=== PATIENT | male | born 1975 | race Caucasian/White ===

== ENCOUNTER 2017-01-22 20:27 | Emergency (ER) | payer MEDICARE, OTHER ==
[2017-01-22 21:25] LABS: RED BLOOD COUNT 5.39 M/UL (4.20-5.50); WHITE BLOOD COUNT 7.8 K/UL (4.5-11.0)
[2017-01-22 21:48] LABS: BUN/CREATININE RATIO 15 (0-10)
== END 2017-01-22 23:50 | disposition home or self-care (01) ==
LOC: ER1 20:27
PROVIDERS: Physician Assistant
DX: E11.65 Type 2 diabetes mellitus with hyperglycemia (principal); I10 Essential (primary) hypertension; E66.9 Obesity, unspecified; E78.5 Hyperlipidemia, unspecified; Z91.14 Patient's other noncompliance with medication regimen; F17.210 Nicotine dependence, cigarettes, uncomplicated; Z88.0 Allergy status to penicillin; Z88.2 Allergy status to sulfonamides
CPT/HCPCS: 36415; 70450; 71010; 80053; 80061; 81001; 82550; 82553; 82962; 83036; 83690; 83874; 84443; 84484; 85025; 87086; 93005; 96360; 96361; 96372; 99284; J1815

== ENCOUNTER 2020-10-17 10:16 | Emergency (ER) | payer MEDICARE ==
[~2020-10-17 10:16] MED LIST: ADULT LOW DOSE81 MG PO; ALBUTEROL0.63 MG/3 INH; ALDACTONE 25MG25 MG PO; ALDACTONE25 MG PO; AMIODARONE HCL200 MG PO; BACTRIM 400-801 EACH PO; BASAGLAR SC; BUMETANIDE1 MG PO; BUMEX 1MG TABLET1 MG PO; CORDARONE 200M200 MG PO; COUMADIN 5MG TAB5 MG PO; ELIQUIS 5 MG TAB5 MG PO; ENDOCET 10-3251 EACH PO; ENOXAPARIN120 MG/0.8 SC; ENOXAPARIN150 MG/1 M SC; ENTRESTO 24 MG1 EACH PO; ENTRESTO 49 MG1 EACH PO; FEOSOL325 MG PO; HABITROL 21 MG P1 EA TD; HUMULIN 70100 UNIT/1 SC; K-DUR TAB 20 M20 MEQ PO; LASIX40 MG PO; LEVAQUIN500 MG PO; LEVEMIR 10100 UNITS/ SC; LIPITOR TAB 2020 MG PO; LISINOPRIL5 MG PO; LOPRESSOR 50 MG50 MG PO; LOPRESSOR100 MG PO; LOPRESSOR50 MG PO; LOVENOX SY120 MG/0.8 SC; METOPROLOL SUC100 MG PO; NEURONTIN300 MG PO; NORCO 10-325 T1 EACH PO; NORCO 7.5-3251 EACH PO; NOVOLOG MI100 UNIT/2 SQ; OMNICEF 300 MG300 MG PO; PEPCID20 MG PO; PREDNISONE20 MG PO; PROAIR HFA8.5 GM INH; ROPINIROLE HCL1 MG PO; SYMBICORT 160-1 INHA INH; TOPROL XL25 MG PO; WARFARIN SODIUM10 MG PO
[2020-10-17 12:32] LABS: RED BLOOD COUNT 5.76 M/UL (4.20-5.50)
[2020-10-17 12:53] LABS: BUN/CREATININE RATIO 29 (0-10)
[2020-10-17] MEDS ORDERED: PERCOCET 5/325 T1 EA PO (13:52)
[2020-10-17] MEDS ORDERED: [UNRECOGNIZED DRUG - SUPPLY] (13:57)
== END 2020-10-17 14:40 | disposition home or self-care (01) ==
LOC: ER1 10:16
PROVIDERS: Family Medicine
DX: M54.5 Low back pain (principal); R79.1 Abnormal coagulation profile; I83.90 Asymptomatic varicose veins of unspecified lower extremity; I50.9 Heart failure, unspecified; E11.9 Type 2 diabetes mellitus without complications; J44.9 Chronic obstructive pulmonary disease, unspecified; F17.210 Nicotine dependence, cigarettes, uncomplicated; Z86.718 Personal history of other venous thrombosis and embolism; Z86.711 Personal history of pulmonary embolism
CPT/HCPCS: 72131; 80053; 82550; 82553; 83874; 84484; 85025; 85610; 93005; 99284

== ENCOUNTER 2020-12-07 09:43 | Emergency (ER) | payer MEDICARE ==
[~2020-12-07 09:43] MED LIST changes: +PERCOCET 5/325 T1 EA PO; +[UNRECOGNIZED DRUG - SUPPLY]
[2020-12-07] MEDS ORDERED: Voltaren Gel 1 % TOP (12:16)
== END 2020-12-07 12:20 | disposition home or self-care (01) ==
LOC: ER1 09:43
DX: S83.91XA Sprain of unspecified site of right knee, initial encounter (principal); E78.5 Hyperlipidemia, unspecified; I10 Essential (primary) hypertension; E11.9 Type 2 diabetes mellitus without complications; I48.91 Unspecified atrial fibrillation; F17.210 Nicotine dependence, cigarettes, uncomplicated; Z79.01 Long term (current) use of anticoagulants; Z79.899 Other long term (current) drug therapy; Z88.2 Allergy status to sulfonamides; Z88.0 Allergy status to penicillin; Z88.8 Allergy status to other drugs, medicaments and biological substances; W01.0XXA Fall on same level from slipping, tripping and stumbling without subsequent striking against object, initial encounter
CPT/HCPCS: 73564; 99283

== ENCOUNTER 2021-02-20 16:30 | Emergency (ER) | payer MEDICARE ==
[~2021-02-20 16:30] MED LIST changes: +Voltaren Gel 1 % TOP
== END 2021-02-20 18:15 | disposition left against medical advice (07) ==
LOC: ER1 16:30
DX: Z53.21 Procedure and treatment not carried out due to patient leaving prior to being seen by health care provider (principal)

== ENCOUNTER 2021-02-21 16:31 | Emergency (ER) | payer MEDICARE ==
[2021-02-21 17:48] LABS: HEMOGLOBIN 15.1 gm/dl (14.0-17.5); RED BLOOD COUNT 4.99 M/UL (4.20-5.50); WHITE BLOOD COUNT 4.3 K/UL (4.5-11.0)
[2021-02-21 18:07] LABS: BUN/CREATININE RATIO 21 (0-10)
== END 2021-02-21 21:30 | disposition home or self-care (01) ==
LOC: ER1 16:31
PROVIDERS: Physician Assistant
DX: K92.1 Melena (principal); E11.9 Type 2 diabetes mellitus without complications; Z86.711 Personal history of pulmonary embolism
CPT/HCPCS: 80053; 85025; 85610; 85730; 99283

== ENCOUNTER → 2021-04-26 | Outpatient (CLI) | payer MEDICARE | LOC: LAB 15:20 | DX: I48.91 Unspecified atrial fibrillation (principal); D68.59 Other primary thrombophilia; I48.0 Paroxysmal atrial fibrillation | CPT/HCPCS: 36415; 85610 ==

== ENCOUNTER 2021-09-30 15:15 | Emergency (ER) | payer MEDICARE ==
[2021-09-30] MEDS ORDERED: HYDROCODON-ACE1 EAC4 PO (16:53)
== END 2021-09-30 17:17 | disposition home or self-care (01) ==
LOC: ER1 15:15
DX: S82.831A Other fracture of upper and lower end of right fibula, initial encounter for closed fracture (principal); E11.9 Type 2 diabetes mellitus without complications; I50.9 Heart failure, unspecified; Z86.711 Personal history of pulmonary embolism; Z88.0 Allergy status to penicillin; Z88.2 Allergy status to sulfonamides; Z88.5 Allergy status to narcotic agent; Z88.1 Allergy status to other antibiotic agents; W00.0XXA Fall on same level due to ice and snow, initial encounter
CPT/HCPCS: 73590; 99283

== ENCOUNTER 2021-10-31 13:55 | Emergency (ER) | payer MEDICARE ==
[~2021-10-31 13:55] MED LIST changes: +HYDROCODON-ACE1 EAC4 PO
== END 2021-10-31 15:09 | disposition left against medical advice (07) ==
LOC: ER1 13:55
DX: Z53.21 Procedure and treatment not carried out due to patient leaving prior to being seen by health care provider (principal)

== ENCOUNTER → 2022-01-22 | Outpatient (CLI) | payer MEDICARE | LOC: LAB 12:53 | DX: Z51.81 Encounter for therapeutic drug level monitoring (principal); Z79.01 Long term (current) use of anticoagulants; I48.91 Unspecified atrial fibrillation; R79.1 Abnormal coagulation profile | CPT/HCPCS: 36415; 85610 ==

== ENCOUNTER → 2022-03-14 | Outpatient (CLI) | payer MEDICARE ==
[2022-03-14 13:07] LABS: HEMOGLOBIN 12.8 gm/dl (14.0-17.5); RED BLOOD COUNT 4.27 M/UL (4.20-5.50); WHITE BLOOD COUNT 6.3 K/UL (4.5-11.0)
== END ==
LOC: LAB 12:34
PROVIDERS: Nurse Practitioner
DX: Z79.01 Long term (current) use of anticoagulants (principal)
CPT/HCPCS: 36415; 85025